=== PATIENT | male | born 1970 | race Caucasian/White ===

== ENCOUNTER 2024-08-16 07:18 | Emergency (ER) | payer OTHER, SELFPAY ==
--- NOTE | ~2024-08-16 | XR_ITS ---
EXAMINATION: XR chest 2V DATE: 08/16/2024 08:54 INDICATION: Right-sided chest pain TECHNIQUE: PA and lateral views of the chest were obtained. COMPARISON: None FINDINGS: Couple small calcified nodules in the right mid and lower lung zones. No other airspace opacities, pu lmonary edema, pleural effusion or pneumothorax. The cardiomediastinal silhouette is normal. Moderate to severe thoracic spondylosis. IMPRESSION: 1. No acute cardiopulmonary disease. Reviewed, dictated and finalized at location B.
--- NOTE | ~2024-08-16 | US_ITS ---
US right upper quadrant INDICATION: Right upper quadrant pain PROCEDURE: Realtime right upper abdominal ultrasound. COMPARISON: No prior studies for comparison. FINDINGS: The pancreas is normal without focal mass or pancreatic ductal dilation. Liver echotexture is increased, consistent with fatty infiltration. Liver is enlarged measuring 18.8 cm There is normal directional flow in the portal vein. The gallbladder is normal without stones, gallbladder wall thickening or pericholecystic fluid. Comm on bile duct measures 4 mm. No sonographic Vargas's sign. IMPRESSION: 1: Hepatomegaly with fatty infiltration of the liver. Reviewed, dictated and finalized at location A.
[2024-08-16 07:22] VITALS: BP 165/87; PULSE 104; RESP 17; TEMP 37.1; O2SAT 100
[2024-08-16 07:48] LABS: Basophils Percent Auto 0.6 % (0.2-1.2); Eosinophils Absolute Auto 0.1 K/mm3 (0-0.3); Eosinophils Percent Auto 1.8 % (0-4.4); Hematocrit 38.5 % (42.0-52.0); Hemoglobin 13.4 g/dL (14.0-18.0); Immature Granulocyte Absolute 0.02 K/mm3 (0.00-0.031); Immature Granulocyte Percent A 0.4 % (0-0.5); Lymphocytes Absolute Auto 0.97 K/mm3 (0.9-3.2); Lymphocytes Percent Auto 19.5 % (18.3-44.2); Mean Corpuscular HGB Conc 34.8 g/dl (32-36); Mean Corpuscular Hemoglobin 31.9 pg (26-34); Mean Corpuscular Volume 91.7 fl (80-100); Mean Platelet Volume 8.6 fl (7.4-10.4); Monocytes Absolute Auto 0.5 K/mm3 (0.1-0.6); Monocytes Percent Auto 9.8 % (2.6-8.5); Neutrophils Absolute Auto 3.4 K/mm3 (1.3-6.7); Neutrophils Percent Auto 67.9 % (45.5-73.1); Platelet Count Result 170 k/mm3 (150-375); Red Cell Distribution Width 12.2 % (11.5-14.5)
[2024-08-16 08:01] LABS: INR 0.9; Prothrombin Time 12.1 Seconds (11.1-14.7)
[2024-08-16 08:03] LABS: Alanine Aminotransferase 47 U/L (6-50); Albumin Level 4.8 g/dL (3.5-5.1); Alkaline Phosphatase 64 U/L (38-126); Anion Gap 15 mmol/L (4-12); Aspartate Amino Transferase 41 U/L (17-59); Bilirubin,Total 0.7 mg/dL (0.2-1.3); Blood Urea Nitrogen 9 mg/dL (9-20); Calcium 9.2 mg/dL (8.4-10.2); Carbon Dioxide 23 mmol/L (22-30); Chloride 99 mmol/L (98-107); Estimated CRCL calculation 88 ml/min; Estimated Glomerular Filt Rate > 60; Glucose 124 mg/dL (65-110); Lipase 107 U/L (23-300); Potassium 4.1 mmol/L (3.4-5.0); Sodium 137 mmol/L (137-145)
--- OUTSIDE RECORDS SUMMARY | 2024-08-16 08:38 | XMS_ITS | Clinical Summary ---
Author Organization [facility] Address [address] [place] [address] Phone Care Team Providers Care Social Media Editor Name Role Phone Jonn Armenta MD Primary Care Provider [phone] Allergies No known active allergies Medications azithromycin (ZITHROMAX Z-NADIA) 250 MG Tablet 2 tab(s) daily for 1 day, then 1 tab(s) daily for days 2-5. 6 Tab 0 6 Active Additional Information Patient not taking.Reported on 06/05/2017 predniSONE (DELTASONE) 50 MG Tablet Take 1 Tab by mouth daily. Use as directed. 5 Tab 0 6 Active Additional Information Patient not taking.Reported on 06/05/2017 promethazine-de xtromethorphan (PROMETHAZINE-D M) 6.25-15 MG/5ML Syrup Take 5 mL by mouth every 4 hours as needed for Cough. 240 mL 8 Active Additional Information Patient not taking.Reported on 07/11/2018 azithromycin (ZITHROMAX) 250 MG Tablet 2 tab(s) daily for 1 day then 1 tab(s) daily for days 2-5. 6 Tab 9 Active Additional Information Patient not taking.Reported on 04/16/2019 promethazine-de xtromethorphan (PROMETHAZINE-D M) 6.25-15 MG/5ML Syrup Take 5 mL by mouth every 4 hours as needed for Cough. 240 mL 9 Active Additional Information Patient not taking.Reported on 04/16/2019 ibuprofen (ADVIL) 200 MG Tablet Take 400 mg by mouth every 8 hours as needed. 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 04/16/2019 Family History Medical History Relation Name Comments Hypertension Mother Relation Name Status Comments Father heart trouble Mother Alive Social History Tobacco Use Types Packs/Day Years Used Date Smoking Tobacco: Never Smokeless Tobacco: Never Alcohol Use Standard Drinks/Week Comments Yes 0 (1 standard drink = 0.6 oz pur e alcohol) Sex and Gender Information Value Date Recorded Sex Assigned at Not on file Legal Sex Male 11:14 PM CDT Gender Identity Not on file Sexual Orientation Not on file Last Filed Vital Signs Vital Sign Reading Time Taken Comments Blood Pressure 132/94 04/16/2019 11:06 AM COMMERCIAL SOLAR SALES CONSULTANT Pulse 81 04/16/2019 11:06 AM COMMERCIAL SOLAR SALES CONSULTANT Temperature 37.1 C (98.7 F) 04/16/2019 11:06 AM COMMERCIAL SOLAR SALES CONSULTANT Respiratory Rate 18 04/16/2019 11:06 AM COMMERCIAL SOLAR SALES CONSULTANT Oxygen Saturation 98% 04/16/2019 11:06 AM COMMERCIAL SOLAR SALES CONSULTANT Inhaled Oxygen Concentration - - Weight 92.6 kg (204 lb 3.2 oz) 04/16/2019 11:06 AM COMMERCIAL SOLAR SALES CONSULTANT Height 180.3 cm (5' 11 ) 04/16/2019 11:06 AM COMMERCIAL SOLAR SALES CONSULTANT Body Mass Index 28.48 04/16/2019 11:06 AM COMMERCIAL SOLAR SALES CONSULTANT Plan of Treatment Health Maintenance Due Date Last Done Comments Hepatitis C Virus (HCV) Screening 1970 TdaP Immunization 1970 Hepatitis B Immunization (1 of 3 - 19+ 3-dose series) 02/08/1987 Colonoscopy 02/08/2013 Colorectal Cancer Screening 02/08/2013 Cologuard 02/08/2018 Immunochemical Fecal Occult Blood 02/08/2018 Pneumococcal Immunization (50+ years) (1 of 1 - PCV) 02/08/2018 Zoster Immunization (1 of 2) 02/08/2018 Influenza Immunization (#1) 01/21/202403/22, 03/08/2017, 03/24/2016, Additional history exists SARS-COV-2 Immunization (3 - 2023- season) 2024 08/09/2020, 07/19/2020 Respiratory Syncytial Virus (RSV) Immunization (Adult) (1 - 1-dose 75+ series) 02/08/2043 PSA Discussion Discontinued 04/23/2019 Meningococcal Immunization (ACWY) Aged Out No longer eligible based on patient's age to complete this topic Rotavirus Immunization Aged Out No lo nger eligible based on patient's age to complete this topic Procedures Procedure Name Priority Date/Time Associated Diagnosis Comments PSA DIAGNOSTIC,TOTAL Routine 04/23/2019 1:16 PM COMMERCIAL SOLAR SALES CONSULTANT 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, initial encounter (HCC) from Last 3 Months or Most Recently Relevant to Health Maintenance Results * PSA DIAGNOSTIC,TOTAL (04/23/2019 1:16 PM COMMERCIAL SOLAR SALES CONSULTANT) PSA, TOTAL (PROSTATIC SPECIFIC ANTIGEN) 0.37 <=4.00 ng/mL 04/23/2019 4:32 PM COMMERCIAL SOLAR SALES CONSULTANT [facility] Blood specimen (specimen) Venipuncture / Unknown 04/23/2019 1:16 PM COMMERCIAL SOLAR SALES CONSULTANT 04/23/2019 3:41 PM COMMERCIAL SOLAR SALES CONSULTANT Narrative [facility] - 04/23/2019 4:32 PM COMMERCIAL SOLAR SALES CONSULTANT PSA NOTE: The PSA value should be used in conjunction with information available from clinical evaluation and other diagnostic procedures. us Darin Hill MD CHEMISTRY ORDERABLES Fin al Result [facility] [address] [facility] [place] [address] from Last 3 Months or Most Recently Relevant to Health Maintenance Care Teams Social Media Editor Relationship Specialty Start Date End Date Jonn Armenta MD [address] [place] [address] DR FAUST [address] [place] [id number] PCP - General Internal Medicine 06/05/17
--- OUTSIDE RECORDS SUMMARY | 2024-08-16 08:38 | XMS_ITS | Patient Health Record ---
Author Organization [facility] Address [address] [facility] [address] [place] [address] Care Team Providers Care Citrix Systems Administrator Name Role Phone UNKNOWN, UNKNOWN Primary Care Provider Unavailab Josiah Longo Unavailable [phone] Allergies No Known Allergies Reason For Referral No Information Medications Medication SIG (Take, Route, Frequency, Duration) Notes Start Date End Date Status Daily Multi Active Ketoconazole 2 % 1 application to aff ected area Externally Once a day for 6 weeks 08/02/2022 Active Terbinafine HCl 250 MG 1 tablet Orally o nce daily for 7 days in a row, then stop. Repeat 1 week of every month as directed for 3 months 08/30/2022 Not-Taking Terbinafine HCl 250 MG 1 tablet Orally o nce daily for 7 days in a row, then stop. 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) Active confirmed Problem 449426261 Pronation deform ity of right foot (M21.6X1) Active confirmed Problem 539364937 Onychomycosis (B35.1) Active confirmed Plan Of Treatment No Information Insurance Providers Payer Name Payer Address Payer Phone Subscriber Number Group Number Insured Name Patient Relationship to Insured Coverage Start Date Coverage End Date [place] [address] [place] [phone] [id number] Ximena Lopez Spouse - patient is the spouse of the insured Medical (General) History Medical History History ICD Code HTN Surgical History Surgery Date(Month/Year) Back surgery (L5 cyst removal and nerve repair - 2022)
--- OUTSIDE RECORDS SUMMARY | 2024-08-16 08:38 | XMS_ITS | Clinical Summary ---
[facility] Address [address] [place] [address] Care Team Providers Care Analytic Manager Name Role Phone Perez Melo MD Primary Care Provider + Allergies No known active allergies Medications losartan (COZAAR) 50 mg tablet TAKE 1 TABLET BY MOUTH EVERY DAY 30 tablet 11 1 Active Additional Information Patient not taking.Reported on 04/19/2022 celecoxib (CeleBREX) 100 mg capsule TAKE 1 CAPSULE BY MOUTH TWICE A DAY 180 capsule Active Additional Information Patient not taking.Reported on 04/19/2022 Active Problems Problem Noted Date Diagnosed Date Sacroiliitis 07/02/2020 Lesion of vertebra 12/17/2019 DDD (degenerative disc disease), lumbar 12/17/19 Lumbar radiculopathy 12/17/2019 Insomnia secondary to chronic pain 12/17/2019 Osteoarthritis of facet joint of lumbar spine Chronic left-sided low back pain without sciatic a 12/17/2019 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 04/16/2019 Mixed hyperlipidemia 08/08/2018 Essential hypertension 08/08/2018 Resolved Problems Problem Noted Date Diagnosed Date Resolved Date Chronic fatigue 08/08/2018 06/16/2020 Immunizations Immunization Administration Dates Next Due Influenza, Quadrivalent, Spl it, Preservative Free, Intradermal 03/24/2016 Influenza, Quadrivalent, Spl it, Preservative Free, Intramuscular 06/16/2020,03/28/2019,04/05/2018 Influenza, Trivalent, IM (MDV) 03/18/2014,2011 Influenza, Trivalent, Preser vative Free, Intramuscular 03/09/2017 Influenza, Unspecified 06/10/2021(Deferr ed: Patient Refused),03/26/2017 Pfizer SARS-CoV-2 Monovalent Vaccination (12+ Yrs) PURPLE 08/09/2020,07/19/2020 Tdap 06/23/2014 ZOSTER Recombinant 11/09/2020,06/16/2020 Surgical History Surgery Date Site/Laterality Comments INGUINAL HERNIA REPAIR Bilateral CARPAL TUNNEL RELEASE Right ULNAR NERVE TRANSPOSITION Right BACK SURGERY 11/18/2019 L2 Kypon Biopsy Medical History Medical History Date Comments Hx Other Medical Chest pain/Pleu risy Hypertension Hyperlipidemia Chronic fatigue 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 (HCC) Lumbar pain with radiation down left leg Family History Medical History Relation Name Comments Heart disease Father Heart disease; Melanoma Mother Other Neg Hx No history of C ancer, breast; Relation Name Status Comments Father Mother Alive Social History Tobacco Use Types Packs/Day Years Used Date Smoking Tobacco: Never Smokeless Tobacco: Never Tobacco Cessation:Counseling Given: Yes Alcohol Use Standard Drinks/Week Comments Yes 12 (1 standard drink = 0.6 oz pu re alcohol) PHQ-2 Answer Date Recorded PHQ-2 Total Score (If total score is 3 or more points, staff should administer the PHQ-9) 0 06/10/2021 Sex and Gender Information Value Date Recorded Sex Assigned at Not on file Legal Sex Male 9:14 AM PISTON MAKER Gender Identity Not on file Sexual Orientation Not on file Obstetrics History Last Filed Vital Signs Vital Sign Reading Time Taken Comments Blood Pressure 191/95 04/19/2022 1:30 PM PISTON MAKER Pulse 101 04/19/2022 1:30 PM PISTON MAKER Temperature 36.6 C (97.8 F) 09/09/2020 7:57 AM CDT Respiratory Rate 18 06/10/2021 10:30 AM PISTON MAKER Oxygen Saturation 100% 09/09/2020 8:11 AM CDT Inhaled Oxygen Concentration - - Weight 88.5 kg (195 lb) 04/19/2022 1:30 PM PISTON MAKER Height 180.3 cm (5' 11 ) 04/19/2022 1:30 PM PISTON MAKER Body Mass Index 27.2 04/19/2022 1:30 PM PISTON MAKER Plan of Treatment Health Maintenance Due Date Last Done Comments Hepatitis C Screening 1970 Hepatitis B Screening 02/08/1986 Prostate Cancer Screening-PSA 12/16/2021 12/16/2020, 08/09/2019, 08/08/2018, Additional history exists Regular Well Visit/Exam 18-64 12/16/2021 12/16/2020, 08/08/2018, 08/07/2017 Depression Screening 06/10/2022 06/10/2021, 12/16/2020, 11/09/2020, Additional history exists Covid-19 Vaccine ( season) 2024 08/09/2020, 07/19/2020 Influenza Vaccine (#1) 2024 , 03/28/2019, 04/05/2018, Additional history exists DTaP/Tdap/Td Vaccine (2 - Td or Tdap) 06/23/2024 06/23/2014 Colon Cancer Screening-Colonoscopy 07/13/2025 07/13/2015, 07/13/2015, 07/13/2015 Colon Cancer Screening-CT Colonography Discontinued 07/13/2015, 07/13/2015, 07/13/2015 Colon Cancer Screening-DNA Stool Discontinued 07/13/2015, 07/13/2015, 07/13/2015 Colon Cancer Screening-Sigmoidoscopy Discontinued 07/13/2015, 07/13/2015, 07/13/2015 Zoster Vaccine Completed 11/09/2020, 06/16/2020 Colon Cancer Screening-FIT Discontinued 06/07, 07/13/2015, 07/13/2015, Additional history exists Pneumococcal vaccine <65 Aged Out No longer eligible based on patient's age to complete this topic Goals Goal Patient Goal Type Associated Problems Recent Progress Patient-Stated? Author [facility] No Sarahi Chery, RN Note: Pt would like to perform job duties, workout with minimal to no pain. Procedures Procedure Name Priority Date/Time Associated Diagnosis Comments FIT OCCULT BLOOD, FECAL Routine 06/07/2021 6:48 AM PISTON MAKER Anemia, unspecified type PSA SCREEN Routine 12/16/2020 4:48 PM CDT Essential hypertension Mixed hyperlipidemia Healthcare maintenance COLONOSCOPY IMAGES 07/13/2015 from Last 3 Months or Most Recently Relevant to Health Maintenance Results * FIT occult blood, fecal (06/07/2021 6:48 AM PISTON MAKER) FIT occult blood, fecal Negative Negative RYAN CHEN ([place]) Comment: Negative result. This test will not detect upper gastrointestinal bleeding; the HemoQuant test (9220)should be ordered if clinically indicated. Test Performed by: [place] [address] Commercial Relationship Manager: Devin Rios M.D. Ph.D.; CLIA# [id number] Stool (Per Rectum) 06/07/2021 6:48 AM PISTON MAKER 06/07/2021 12:50 PM PISTON MAKER Jonn Armenta MD LAB BODY FLUIDS AND STOOLS ORD ERABLES Final Result Performing Organization Address [facility] Co de Phone Number RYAN CHEN ([place]) 1 [facility] Department of Laboratories [place] [id number] * PSA screen (12/16/2020 4:48 PM CDT) PSA-Total 0.34 <=3.90 ng/mL RYAN CHEN ([place]) Comment: Interpretive Data AGE SEX REFERENCE INTERVAL 0 minutes-150 years Female None 0 minutes-49 years Male None 50-59 years Male 0-3.90 60-69 years Male 0-5.40 70-79 years Male 0-6.20 80-150 years Male 0-6.20 Current interpretive data last revised 2018. Testing performed by: [facility], [id number] [place] [address], [place]., [address] Blood specimen (specimen) 12/16/2020 4:48 PM CDT 12/17/2020 8:58 AM CDT Jonn Armenta MD LAB BLOOD ORDERABLES Final Res ult Performing Organization Address City/[facility] Co de Phone Number RYAN CHEN ([place] 1 [facility] [place] [address] * COLONOSCOPY IMAGES (07/13/2015) Anatomical Region Laterality Modality Other Narrative 07/13/2015 Ordered by an unspecified provider. us Historical Provider GI PROCEDURE ORDERABLES F inal Result from Last 3 Months or Most Recently Relevant to Health Maintenance Insurance [facility] [employer] [facility] [employer] [facility] [employer] Care Teams Analytic Manager Relationship Specialty Start Date End Date Perez Melo MD [address] [place] [address] PCP - General Internal Medicine 03/10/22
--- OUTSIDE RECORDS SUMMARY | 2024-08-16 08:38 | XMS_ITS | Referral Summary ---
[facility] Address [address] [place] [address] Care Team Providers Care Head Boys Tennis Coach Name Role Phone Perez Melo MD Primary [...] PURPLE 08/09/2020,07/19/2020 Tdap 06/23/2014 ZOSTER Recombinant 11/09/2020,06/16/2020 Social History Tobacco Use Types Packs/Day Years [...] on file Legal Sex Male 9:14 AM CHINA DECORATOR Gender Identity Not on file Sexual Orientation Not on file Last Filed Vital Signs Vital Sign Reading Time Taken Comments Blood Pressure 191/95 04/19/2022 1:30 PM CHINA DECORATOR Pulse 101 04/19/2022 1:30 PM CHINA DECORATOR Temperature 36.6 C (97.8 F) 09/09/2020 7:57 AM CDT Respiratory Rate 18 06/10/2021 10:30 AM CHINA DECORATOR Oxygen Saturation 100% 09/09/2020 8:11 AM CDT Inhaled Oxygen Concentration - - Weight 88.5 kg (195 lb) 04/19/2022 1:30 PM CHINA DECORATOR Height 180.3 cm (5' 11 ) 04/19/2022 1:30 PM CHINA DECORATOR Body Mass Index 27.2 04/19/2022 1:30 PM CHINA DECORATOR Plan of Treatment Not on file Goals Goal Patient Goal Type Associated Problems Recent Progress Patient-Stated? Author [facility] No Sarahi Chery, RN Note: Pt would like to perform job duties, workout with minimal to no pain. Procedures Procedure Name Priority Date/Time Associated Diagnosis Comments FIT OCCULT BLOOD, FECAL Routine 06/07/2021 6:48 AM CHINA DECORATOR Anemia, unspecified type PSA SCREEN Routine 12/16/2020 4:48 PM CDT Essential hypertension Mixed hyperlipidemia Healthcare maintenance COLONOSCOPY IMAGES 07/13/2015 from Last 3 Months or Most Recently Relevant to Health Maintenance Results * FIT occult blood, fecal (06/07/2021 6:48 AM CHINA DECORATOR) FIT occult blood, fecal Negative Negative RYAN CHEN ([place]) Comment: Negative result. This test will not detect upper gastrointestinal bleeding; the HemoQuant test (9220)should be ordered if clinically indicated. Test Performed by: [place] [address] Supervisor Filtration: Devin Rios M.D. Ph.D.; CLIA# [id number] Stool (Per Rectum) 06/07/2021 6:48 AM CHINA DECORATOR 06/07/2021 12:50 PM CHINA DECORATOR Jonn Armenta MD LAB BODY FLUIDS AND STOOLS ORD ERABLES Final Result RYAN CHEN ([place]) 1 [facility] Department [place] [address] * PSA screen (12/16/2020 4:48 PM CDT) PSA-Total 0.34 <=3.90 ng/mL RYAN CHEN ([place]) Comment: Interpretive Data AGE SEX REFERENCE INTERVAL 0 minutes-150 years Female None 0 minutes-49 years Male None 50-59 years Male 0-3.90 60-69 years Male 0-5.40 70-79 years Male 0-6.20 80-150 years Male 0-6.20 Current interpretive data last revised 2018. Testing performed by: [facility], [address] [place] [address], [place]., [address] Blood specimen (specimen) 12/16/2020 4:48 PM CDT 12/17/2020 8:58 AM CDT Jonn Armenta MD LAB BLOOD ORDERABLES Final Res ult [facility] 1 [facility] Department [place] [address] * COLONOSCOPY IMAGES (07/13/2015) Anatomical Region Laterality Modality Other Narrative 07/13/2015 Ordered by an unspecified provider. us Historical Provider GI PROCEDURE ORDERABLES F inal Result from Last 3 Months or Most Recently Relevant to Health Maintenance Insurance [facility] [employer] [facility] [employer] Member Subscriber Plan / Payer (Ef fective 2019-Present) Name:Eric Ignacio Relation to Subscriber:Spouse Name:JACKIE IGNACIO Date of :1963 (Home) Address: [address] [place] [id number] Payer ID:[id number] Group ID:[id number] Type:CIGNA HMO/PPO Address: [place], [place] [facility] [employer] Care Teams Head Boys Tennis Coach Relationship Specialty Start Date End Date Perez Melo MD [address] [place] [address] PCP - General Internal Medicine 03/10/22
[2024-08-16 09:01] VITALS: BP 150/90; PULSE 98; RESP 15; O2SAT 97
[2024-08-16 10:16] VITALS: BP 158/97; PULSE 107; RESP 19; O2SAT 100
--- NOTE | 2024-08-16 10:24 | ED_ITS ---
HPI - Abdominal Pain General Chief Complaint: Abdominal Pain Stated Complaint: RUQ pain, indigestion, gallbladder attack Time Seen by Provider: 08/16/24 07:24 Source: patient Mode of arrival: ambulatory Limitations: no limitations History of Present Illness HPI narrative: 54-year-old with a history of hypertension presents to the ER with a complaint of right-sided upper abdominal pain in right lower rib cage pain for past few days. Patient states that he has symptoms of acid reflux. He denies any fever or chills. No history of gallbladder problems in the past. denies any trauma, cough or shortness of breath. MD elicited complaint: abdominal pain Pertinent past history: none Onset (ago): day(s) (2) Pain Consistency: constant Location: RUQ Severity: moderate Quality: aching Radiation: none Migration to: no migration Exacerbating factors: nothing Relieving factors: nothing Associated symptoms: nausea Related Data Allergies Allergy/AdvReac Type Severity Reaction Status Date / Time No Known Allergies Allergy Verified 08/16/24 07:27 Review of Systems 2 Review of Systems: All systems reviewed & are unremarkable except as noted in HPI and below Constitutional: Constitutional: Reports no additional constitutional complaints Eyes: Eyes: Reports no additional eye complaints ENT: Reports system reviewed and no additional complaints, except as documented Cardiovascular: Cardiovascular: Reports no additional cardiovascular complaints Respiratory: Respiratory: Reports as per HPI Gastrointestinal: Gastrointestinal: Reports as per HPI Genitourinary: Genitourinary: Reports no additional male genitourinary complaints Musculoskeletal: Musculoskeletal: Reports no additional musculoskeletal complaints Integumentary/Breasts: Skin/Breast: Reports system reviewed and no additional complaints, except as docu Neurologic: Reports system reviewed and no additional complaints, except as documented Exam 2 Narrative: GENERAL: Well-appearing, well-nourished, and in no acute distress. HEAD: Normocephalic, atraumatic. EYES: PERRLA and EOMI. ENT: Nares clear, no rhinorrhea or epistaxis. Mucous membranes moist. NECK: Supple. CHEST: Clear to auscultation. No respiratory distress. HEART: Regular rate and rhythm. No murmur heard. Normal peripheral pulses. ABDOMEN: Soft, nontender, nondistended, normal active bowel sounds. EXTREMITIES: Normal range of motion. No edema. SKIN: Warm, dry, no rash. NEURO: No focal deficits. Alert and oriented x3. PSYCH: Normal mood and affect. Course Course Emergency Course: Patient still feels like she has acid reflux. I did inform him and his about the lab work, chest x-ray and ultrasound findings. Could be biliary colic advised him to take medication as prescribed, follow-up with Dr. Melo in [place]. Vital Signs Vital signs: Vital Signs Temperature 37.1 C 08/16/24 07:22 Pulse Rate 104 H 08/16/24 07:22 Respiratory Rate 17 08/16/24 07:22 Blood Pressure 165/87 H 08/16/24 07:22 Pulse Oximetry 100 08/16/24 07:22 Oxygen Delivery Room Air 08/16/24 07:22 Temperature 37.1 C 08/16/24 07:22 Pulse Rate 104 H 08/16/24 07:22 Respiratory Rate 17 08/16/24 07:22 Blood Pressure 165/87 H 08/16/24 07:22 Pulse Oximetry 100 08/16/24 07:22 Oxygen Delivery Room Air 08/16/24 07:22 MDM - Abdominal Pain Differential Diagnosis Differential diagnosis: Likely abdominal pain, constipation and other (Pneumonia, biliary colic) Medical Records Attestation: I reviewed the patient's medical records. Lab Data Attestation: I reviewed the patient's lab results. 08/16/24 07:42 08/16/24 07:42 Labs: Lab Results 08/16/24 Range/Units 07:42 WBC 5.0 (4.5-10.0) K/mm3 RBC 4.20 L (4.6-6.20) M/mm3 Hgb 13.4 L (14.0-18.0) g/dL Hct 38.5 L (42.0-52.0) % MCV 91.7 (80-100) fl MCH 31.9 (26-34) pg MCHC 34.8 (32-36) g/dl RDW 12.2 (11.5-14.5) % Plt Count 170 (150-375) k/mm3 MPV 8.6 (7.4-10.4) fl Immature Gran % (Auto) 0.4 (0-0.5) % Neut % (Auto) 67.9 (45.5-73.1) % Lymph % (Auto) 19.5 (18.3-44.2) % [place] % (Auto) 9.8 H (2.6-8.5) % Eos % (Auto) 1.8 (0-4.4) % Baso % (Auto) 0.6 (0.2-1.2) % Lymph # (Auto) 0.97 (0.9-3.2) K/mm3 [place] # (Auto) 0.5 (0.1-0.6) K/mm3 Eos # (Auto) 0.1 (0-0.3) K/mm3 Baso # (Auto) 0.0 (0.0-0.1) K/mm3 Abs Immat Gran (auto) 0.02 (0.00-0.031) K/mm3 Absolute Neuts (auto) 3.4 (1.3-6.7) K/mm3 Absolute Nucleated RBC 0.000 (0.0-0.012) K/mm3 Nucleated RBC % 0.0 (0.0-0.2) % PT 12.1 (11.1-14.7) Seconds INR 0.9 Sodium 137 (137-145) mmol/L Potassium 4.1 (3.4-5.0) mmol/L Chloride 99 (98-107) mmol/L Carbon Dioxide 23 (22-30) mmol/L Anion Gap 15 H (4-12) mmol/L BUN 9 (9-20) mg/dL Creatinine 0.87 (0.7-1.3) mg/dL Estim Creat Clear Calc 88 ml/min Estimated GFR > 60 (59 - ) Glucose 124 H (65-110) mg/dL Calcium 9.2 (8.4-10.2) mg/dL Total Bilirubin 0.7 (0.2-1.3) mg/dL AST 41 (17-59) U/L ALT 47 (6-50) U/L Alkaline Phosphatase 64 (38-126) U/L Total Protein 8.0 (6.3-8.2) g/dL Albumin 4.8 (3.5-5.1) g/dL Lipase 107 (23-300) U/L Imaging Data Radiologist's impression: ITS Impressions Chest X-Ray 08/16/24 08:57 IMPRESSION: 1. No acute cardiopulmonary disease. Upper Quadrant Ultrasound 08/16/24 09:47 IMPRESSION: 1: Hepatomegaly with fatty infiltration of the liver. Discharge Plan Discharge Clinical Impression: Biliary colic symptom Patient Disposition: Home, Self-Care Condition: Stable Instructions: Biliary Colic (ED) Additional Instructions: Be on fat free and dairy free diet for few days, you may need further workup for gallbladder on outpatient basis. Recommended you to follow with Dr. Melo . Take medication as prescribed. Patient Language: Croatian Prescriptions: New esomeprazole magnesium [Nexium] 40 mg capsule,delayed release(DR/EC) 40 mg PO DAILY Qty: 30 0RF hydrocodone-acetaminophen 5-325 mg tablet 1 tablet PO Q8H PRN (Reason: pain) Qty: 10 0RF Follow-up/Referrals: Kameron,Jessee Rojas MD [Primary Care Provider] - Time of Disposition: 10:38
[2024-08-16 10:44] VITALS: BP 146/86; PULSE 102; RESP 18; O2SAT 100
== END 2024-08-16 10:45 | disposition home or self-care (01) ==
PROVIDERS: Emergency Provider Family Medicine; PCP Internal Medicine
DX: K80.50 Calculus of bile duct without cholangitis or cholecystitis without obstruction (principal); I10 Essential (primary) hypertension
CPT/HCPCS: 36415; 71046; 76705; 80053; 83690; 85025; 85610; 99284